=== PATIENT | male | born 1935 | race Caucasian/White ===

== ENCOUNTER 2017-02-11 09:09 | Emergency (ER) | payer MEDICARE, BC ==
[2017-02-11 09:56] LABS: Mean Corpuscular HGB CONC 33.2 g/dL (32.0-36.0); Mean Corpuscular Hemoglobin 32.1 pg (27.0-31.0); Mean Corpuscular Volume 96.7 fl (80.0-94.0); Mean Platelet Volume 8.6 fL (7.4-10.4); Platelet Count 193 thou/uL (130-400); RBC Distribution Width 13.1 % (11.5-14.5); Red Blood Cell (RBC) Count 4.04 mill/uL (4.70-6.10); White Blood Cell (WBC) Count 12.2 thou/uL (4.8-10.8)
[2017-02-11 10:02] LABS: INR-International Normal Ratio 2.2; MDiff Complete? YES; Manual Diff?? YES; PTT 34.7 SEC (22.9-36.1); Prothrombin Time 25.6 SEC (12.0-14.7)
[2017-02-11 10:03] LABS: Band 5 % (5-11); Lymphocytes 18 % (21-51); Monocytes 2 % (0-10); Neutrophil 75 % (42-75); PLT Morphology Comment Appears Adequate; RBC Morphology Normal
[2017-02-11 10:08] LABS: ALT (SGPT) 13 U/L (8-55); AST (SGOT) 11 U/L (5-34); Albumin 3.6 g/dL (3.4-4.8); Alkaline Phosphatase 65 U/L (40-150); Anion Gap 13 mmol/L (10-20); BUN (Urea Nitrogen) 14 mg/dL (8.4-25.7); Bilirubin, Total 0.7 mg/dL (0.2-1.2); Calc. Creatinine Clearance 0 mL/min (70-130); Calcium 8.6 mg/dL (7.8-10.44); Carbon Dioxide 23 mmol/L (23-31); Chloride 111 mmol/L (98-107); Estimated GFR-MDRD 67; Globulin 2.8 g/dL (2.4-3.5); Glucose 106 mg/dL (83-110); Protein, Total 6.4 g/dL (5.8-8.1); Sodium 143 mmol/L (136-145)
[2017-02-11 10:09] LABS: CKMB 1.3 ng/mL (0-6.6); Troponin I Less than 0.010 ng/mL (< 0.028)
--- NOTE | 2017-02-11 10:25 | RAD ---
PORTABLE CHEST: Date: 02/11/17 HISTORY: Preop. COMPARISON: 01/27/15. FINDINGS: Heart size appears slightly enlarged. Mediastinal structures are unremarkable. Lungs are clear of inf iltrates. Right shoulder prosthesis is noted. IMPRESSION: Minimal cardiomegaly. No active intrathoracic disease. POS: [facility]
== END 2017-02-11 10:40 | disposition home or self-care (01) ==
LOC: MADERS 09:09
DX: J06.9 Acute upper respiratory infection, unspecified (principal); R07.81 Pleurodynia; I48.91 Unspecified atrial fibrillation; I10 Essential (primary) hypertension; N40.0 Benign prostatic hyperplasia without lower urinary tract symptoms; Z79.01 Long term (current) use of anticoagulants; Z79.899 Other long term (current) drug therapy
CPT/HCPCS: 71010; 80053; 82553; 83880; 84484; 85025; 85610; 85730; 93005; 94760; 96372; J1040

== ENCOUNTER 2018-02-26 09:58 | Emergency (ER) | payer MEDICARE, BC ==
[2018-02-26] MEDS ORDERED: cefTRIAXone\\ROCEPHIN 1 GM VIAL ONE (10:29)
[2018-02-26] MEDS ORDERED: Lidocaine 1% 20 ML MDV ONE (10:29)
--- NOTE | 2018-02-26 10:40 | RAD ---
CHEST 2 VIEWS: Date: 02/26/18 HISTORY: Chest pain. COMPARISON: 02/11/17. FINDINGS: Cardiac silhouette is unremarkable. Pulmonary vasculature is within normal limits. Calcified granulom jeannie are consistent with healed granulomatous disease. No confluent air space consolidation, pneumotho rax, or pleural fluid are apparent. Degenerative changes of the thoracic spine. Right shoulder prosth esis. IMPRESSION: No active cardiopulmonary abnormalities are demonstrated. POS: [facility]
[2018-02-26 11:04] LABS: #Basophils 0.1 thou/uL (0.0-0.2); #Eosinphils 0.3 thou/uL (0.0-0.7); #Lymphocytes 2.7 thou/uL (1.20-3.40); #Monocytes 0.9 thou/uL (0.11-0.59); #Neutrophils 3.9 thou/uL (1.40-6.50); %Basophils 1.2 % (0.0-1.0); %Eosinophils 3.6 % (0.0-10.0); %Lymphocytes 34.2 % (21.0-51.0); %Monocytes 11.4 % (0.0-10.0); %Neutrophils 49.7 % (42.0-75.0); Hemoglobin 11.6 g/dL (14.0-18.0); Mean Corpuscular HGB CONC 33.1 g/dL (32.0-36.0); Mean Corpuscular Hemoglobin 29.3 pg (27.0-31.0); Mean Corpuscular Volume 88.7 fL (78.0-98.0); Mean Platelet Volume 8.1 fL (7.4-10.4); Platelet Count 211 thou/uL (130-400); RBC Distribution Width 14.3 % (11.5-14.5); Red Blood Cell (RBC) Count 3.96 mill/uL (4.70-6.10); White Blood Cell (WBC) Count 7.8 thou/uL (4.8-10.8)
[2018-02-26 11:17] LABS: Anion Gap 13 mmol/L (10-20); BUN (Urea Nitrogen) 12 mg/dL (8.4-25.7); Calc. Creatinine Clearance 0 mL/min (70-130); Calcium 8.8 mg/dL (7.8-10.44); Carbon Dioxide 25 mmol/L (23-31); Chloride 104 mmol/L (98-107); Estimated GFR-MDRD 80; Glucose 89 mg/dL (83-110); Potassium 4.2 mmol/L (3.5-5.1); Sodium 138 mmol/L (136-145)
== END 2018-02-26 11:45 | disposition home or self-care (01) ==
LOC: MADERS 09:58
DX: J20.9 Acute bronchitis, unspecified (principal); I48.91 Unspecified atrial fibrillation; N40.0 Benign prostatic hyperplasia without lower urinary tract symptoms; I10 Essential (primary) hypertension; Z79.01 Long term (current) use of anticoagulants; Z79.899 Other long term (current) drug therapy
CPT/HCPCS: 36415; 71046; 80048; 83605; 85025; 87804; 96372; J0696; J2001

== ENCOUNTER 2018-09-10 04:55 | Emergency (ER) | payer MEDICARE, BC ==
[2018-09-10] MEDS ORDERED: Lidocaine Viscous Sol 2% 15 ml UD Cup ONE (05:32)
[2018-09-10] MEDS ORDERED: HYDROcodone/Acetaminophen 10/325 mg Tablet ONE (05:36)
--- NOTE | 2018-09-10 07:38 | CT ---
CERVICAL SPINE CT NONCONTRAST: INDICATION: Pain. FINDINGS: There is multilevel degenerative of the cervical spine without acute fracture or subluxation. There is moderate multilevel degenerative change. Craniocervical junction is intact. There is motion linus fact which does decrease sensitivity of the evaluation. IMPRESSION: No acute osseous abnormality of the cervical spine is identified. POS: [facility]
--- NOTE | 2018-09-10 08:30 | RAD ---
RIGHT SHOULDER 4 VIEWS: HISTORY: Shoulder pain. FINDINGS: Total shoulder prosthesis is present. There are minimal arthritic changes of the AC joint, a small s ubacromial spur. Ossified bodies are seen in this area. No acute bony change. IMPRESSION: No acute findings. POS: [facility]
--- NOTE | 2018-09-10 08:35 | RAD ---
CHEST 2 VIEWS: HISTORY: Right-sided chest pain. FINDINGS: The heart size is upper limits normal. Mediastinal structures are unremarkable. Lungs are clear of infiltrates. A right shoulder replacement is noted. IMPRESSION: No active intrathoracic disease. POS: [facility]
== END 2018-09-10 07:57 | disposition home or self-care (01) ==
LOC: MADERS 04:55
DX: M54.12 Radiculopathy, cervical region (principal); I10 Essential (primary) hypertension; I49.9 Cardiac arrhythmia, unspecified; I48.91 Unspecified atrial fibrillation; N40.0 Benign prostatic hyperplasia without lower urinary tract symptoms; Z87.891 Personal history of nicotine dependence; Z79.01 Long term (current) use of anticoagulants; Z79.899 Other long term (current) drug therapy
CPT/HCPCS: 71046; 72125

== ENCOUNTER 2019-05-07 11:00 | Emergency (ER) | payer MEDICARE, BC ==
[~2019-05-07 11:00] MED LIST: Iopamidol 370 76% 125 ML VIAL FS ONE; Sodium Chloride 0.9% 1,000 ML BAG ONE
[2019-05-07 11:47] LABS: Bilirubin Negative (Negative); Blood, Urine Trace (Negative); Clarity Clear (Clear); Glucose, Urine (Dipstick) Negative (Negative); Leukocyte Negative (Negative); Nitrite Negative (Negative); Protein, Urine (Dipstick) Negative (Neg-Trace); Urobilinogen 0.2 mg/dL (Less than 2)
--- NOTE | 2019-05-07 11:56 | CT ---
CT BRAIN WITHOUT CONTRAST: HISTORY: Acute confusion. Altered mental status COMPARISON: 04/14/2019 FINDINGS: Exam is limited due to presence of motion artifact. 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 No evidence of acute infarct, hemorrhage, midline shift or abnormal extra-axial fluid collections is seen. The ventricular size is appropriate and the basilar cisterns are patent. The bony calvarium is intact. Th e visualized paranasal sinuses and mastoid air cells are well aerated. IMPRESSION: No CT evidence of acute intracranial process.
[2019-05-07 11:57] LABS: RBC/HPF 0-3 HPF (0-3); Squamous Epithelial 0-3 HPF (0-3); WBC/HPF 0-3 HPF (0-3)
--- NOTE | 2019-05-07 11:57 | RAD ---
XR Chest Pa Lat STANDARD HISTORY: Shortness of breath COMPARISON: 04/14/2019 FINDINGS: The heart size is normal. The lungs are well expanded without focal areas of consolidation, large pneumothorax or pleural effusions. The lung apices have been excluded from the film. Postop changes of right shoulder arthroplasty and left-sided Port-A-Cath are again seen. There are degenerat steve changes in the spine. IMPRESSION: No definite radiographic evidence of acute cardiopulmonary process.
[2019-05-07 11:58] LABS: Bacteria/HPF Rare-Few HPF (None Seen)
[2019-05-07 12:28] LABS: #Basophils 0.1 thou/uL (0.0-0.2); #Lymphocytes 1.4 thou/uL (1.20-3.40); #Monocytes 0.7 thou/uL (0.11-0.59); #Neutrophils 8.6 thou/uL (1.40-6.50); %Basophils 0.8 % (0.0-1.0); %Eosinophils 0.4 % (0.0-10.0); %Monocytes 6.6 % (0.0-10.0); %Neutrophils 79.1 % (42.0-75.0); Hemoglobin 10.4 g/dL (14.0-18.0); INR-International Normal Ratio 1.1; MDiff Complete? YES; Macrocytosis SLIGHT = 6-15 cells (100X) (0-5/hpf); Mean Corpuscular HGB CONC 30.4 g/dL (32.0-36.0); Mean Corpuscular Hemoglobin 32.8 pg (27.0-31.0); Mean Corpuscular Volume 107.9 fL (78.0-98.0); Mean Platelet Volume 7.2 fL (7.4-10.4); PTT 26.4 SEC (22.9-36.1); Platelet Count 271 thou/uL (130-400); Prothrombin Time 13.7 SEC (12.0-14.7); RBC Distribution Width 16.8 % (11.5-14.5); Red Blood Cell (RBC) Count 3.16 mill/uL (4.70-6.10); White Blood Cell (WBC) Count 10.9 thou/uL (4.8-10.8)
[2019-05-07 12:36] LABS: ALT (SGPT) 14 U/L (8-55); AST (SGOT) 16 U/L (5-34); Albumin 3.9 g/dL (3.4-4.8); Alkaline Phosphatase 105 U/L (40-110); Anion Gap 18 mmol/L (10-20); BUN (Urea Nitrogen) 29 mg/dL (8.4-25.7); Bilirubin, Total 0.5 mg/dL (0.2-1.2); Calc. Creatinine Clearance 0 mL/min (70-130); Carbon Dioxide 14 mmol/L (23-31); Chloride 111 mmol/L (98-107); Estimated GFR-MDRD 51; Globulin 3.2 g/dL (2.4-3.5); Glucose 99 mg/dL (83-110); Lipase 21 U/L (8-78); Potassium 4.7 mmol/L (3.5-5.1); Protein, Total 7.1 g/dL (5.8-8.1); Sodium 138 mmol/L (136-145)
[2019-05-07 12:43] LABS: D-Dimer Test 5.08 *mcg/mL (0.27-0.43)
[2019-05-07] MEDS ORDERED: Vancomycin 1.5 GRAM/300 ML BAG 1.5 GM/300 ML BAG ONE (13:06)
[2019-05-07] MEDS ORDERED: Acetaminophen 500 MG TAB ONE (13:13)
--- NOTE | 2019-05-07 13:57 | CT ---
CTA Angio Chest W WO Con 05/07/2019 12:50 PM Indication: Chest Pain Technique: Multiple CTA images were obtained of the thorax with IV contrast. 3-D rendering: MIP cory nstructed images were created and reviewed. Comparison: No relevant prior studies available. Findings: Motion artifact heavily limits image detail. Pulmonary arteries: No definite central pulmonary embolus is grossly evident. The degree of respirat ory motion artifact limits evaluation of the segmental pulmonary arteries of both lungs Heart and Aorta: There are vascular calcifications involving the thoracic aorta. There is a left IJ chest wall port. Mediastinum:Normal appearing. No enlarged lymph nodes. Lungs:There is stable scarring within the lingula. There is a stable 1.2 cm pulmonary nodule in the l eft upper lobe. Pleural space: Clear. Upper Abdomen: No acute abnormality. Osseous Structures: No acute osseous abnormality. There are multiple healed bilateral rib fractures. Soft tissues:No abnormality. Other findings:None. Impression: No definite central pulmonary embolus. Respiratory motion artifact limits imaging evaluation of the s egmental pulmonary arteries. Mild scarring present within the lingula is stable. 1.2 cm subpleural pulmonary nodule left upper lob e is stable appearing. Mild scarring in the left lower lobe is stable.
== END 2019-05-07 14:25 | disposition short-term general hospital (02) ==
LOC: MADERS 11:00
DX: A41.9 Sepsis, unspecified organism (principal); D64.9 Anemia, unspecified; E86.0 Dehydration; I10 Essential (primary) hypertension; I48.91 Unspecified atrial fibrillation; Z87.891 Personal history of nicotine dependence; Z79.899 Other long term (current) drug therapy; Z79.82 Long term (current) use of aspirin
CPT/HCPCS: 70450; 71046; 71275; 80053; 81003; 81015; 83605; 83690; 83880; 84443; 84484; 85025; 85379; 85610; 85730; 87040; 87077; 87149; 87804; 93005; 96365; J7050; J7620; Q9967